=== PATIENT | female | born 1975 | race Caucasian/White ===

== ENCOUNTER 2017-08-06 16:52 | Emergency (ER) | payer OTHER ==
[2017-08-06] MEDS: ONDANSETRON (ODT) 4 MG TAB ODT (19:08)
[2017-08-06] MEDS: ACETAMINOPHEN 325 MG TAB PO (19:08)
[2017-08-06] MEDS: IBUPROFEN 200 MG TAB PO (19:08)
[2017-08-06 19:16] LABS: URINE PH (Dip) POC 8.5 (5.0-8.5)
[2017-08-06 19:16] LABS: URINE BLOOD (Dip) POC 1+ (NEGATIVE); URINE GLUCOSE (Dip) POC Negative (NEGATIVE); URINE KETONES (Dip) POC Negative (NEGATIVE); URINE LEUKOCYTE EST (Dip) POC Negative (NEGATIVE); URINE NITRITE (Dip) POC Negative (NEGATIVE); URINE TOTAL PROTEIN POC 1+ (NEGATIVE)
== END 2017-08-06 20:32 | disposition home or self-care (01) ==
LOC: FTE 16:52
DX: G43.909 Migraine, unspecified, not intractable, without status migrainosus (principal); I10 Essential (primary) hypertension
CPT/HCPCS: 70450; 81003; 81025; 99284-25